=== PATIENT | female | born 1950 | race Caucasian/White ===

== ENCOUNTER 2020-12-12 21:26 | Emergency (ER) | payer MEDICARE, BC ==
[2020-12-12 21:37] VITALS: BP 141/88; PULSE 72
--- NOTE | 2020-12-12 21:45 | EDM.PDOC ---
ED HPI GENERAL MEDICAL PROBLEM - General Chief Complaint: Upper Extremity Injury/Pain Stated Complaint: RIGHT WRIST INJURY Time Seen by Provider: 12/12/20 21:30 Source of Information: Reports: Patient, RN Notes Reviewed History Limitations: Reports: No Limitations - History of Present Illness INITIAL COMMENTS - FREE TEXT/NARRATIVE: Patient is a 70-year-old female presenting to the emergency department with complaints of right wrist pain and swelling. She states earlier today, she fell forward and braced her fall with her wrist. Initially she did not have much pain, however as the evening goes on the pain and swelling has been worsening. She has been icing intermittently. Denies any previous injuries or fractures to this wrist. Right Wrist Pain Score (Numeric/FACES): 8 - Related Data Allergies Allergy/AdvReac Type Severity Reaction Status Date / Time ciprofloxacin Allergy Rash Verified 12/12/20 21:37 doxycycline Allergy Hives Verified 12/12/20 21:37 Home Meds: Home Meds . [No Known Home Meds] 01/16/15 [History] Past Medical History - Infectious Disease History Infectious Disease History: Reports: None Social & Family History - Tobacco Use Tobacco Use Status *Q: Never Tobacco User Second Hand Smoke Exposure: No - Caffeine Use Caffeine Use: Reports: Coffee - Recreational Drug Use Recreational Drug Use: No Review of Systems - Review of Systems Review Of Systems: Comprehensive ROS is negative, except as noted in HPI. ED EXAM, GENERAL - Physical Exam Exam: See Below Exam Limited By: No Limitations General Appearance: Alert, WD/WN, No Apparent Distress Respiratory/Chest: No Respiratory Distress, Lungs Clear, Normal Breath Sounds, No Accessory Muscle Use, Chest Non-Tender Cardiovascular: Normal Peripheral Pulses, Regular Rate, Rhythm, No Edema, No Gallop, No JVD, No Murmur, No Rub Extremities: Other (Tenderness to palpation to the ulnar aspect of the right wrist. Mild amount of swelling. No obvious deformity. CMS intact distal to the injury.) Neurological: Alert, Oriented, CN II-XII Intact, Normal Cognition, Normal Gait, Normal Reflexes, No Motor/Sensory Deficits Psychiatric: Normal Affect, Normal Mood Skin Exam: Warm, Dry, Intact, Normal Color, No Rash Course - Vital Signs Last Recorded V/S: Last Vital Signs Temp 97.5 F 12/12/20 21:34 Pulse 72 12/12/20 21:34 Resp 18 12/12/20 21:34 BP 141/88 H 12/12/20 21:34 Pulse Ox 95 12/12/20 21:34 - Orders/Labs/Meds Orders: Active Orders 24 hr Category Date Time Status Wrist Comp Min 3V Rt [CR] Stat Exams 12/12/20 21:38 Taken DME for Discharge [COMM] Routine Oth 12/12/20 21:57 Ordered - Re-Assessments/Exams Free Text/Narrative Re-Assessment/Exam: Patient is a 70-year-old female presenting to the emergency department with co mplaints of right wrist pain. She states she fell earlier in the day and outstretched her hand to catch herself. Initially she did not have too much pain to her wrist but throughout the evening and has been getting progressively more painful and swollen. On exam, she does have some mild swelling to the ulnar aspect of her wrist. This area is tender to palpation. Radial aspect of her wrist is not tender. There is no obvious deformity. I have ordered an x- ray of the right wrist. 12/12/20 22:02 X-ray of the wrist reviewed by myself and Dr. Palm. There is no visible fractures. Patient will be provided with a Velcro wrist splint to wear as needed. Recommend ice and elevation. If she still has significant discomfort after 1 week, recommend follow-up with orthopedist, Dr. Kent. Departure - Departure Time of Disposition: 22:04 Disposition: Home, Self-Care 01 Condition: Good Clinical Impression: Sprain of wrist, right Qualifiers: Encounter type: initial encounter Qualified Code(s): S63.501A - Unspecified sprain of right wrist, initial encounter - Discharge Information *PRESCRIPTION DRUG MONITORING PROGRAM REVIEWED*: No *COPY OF PRESCRIPTION DRUG MONITORING REPORT IN PATIENT CARLA: No Instructions: Wrist Sprain, Adult Referrals: Madhav Kent MD [Physician] - Forms: ED Department Discharge Additional Instructions: You were seen in the emergency department for pain and swelling to your right wrist after sustaining a fall today. Xrays were completed of the wrist and do not show any obvious fractures. You have been provided with a velco wrist splint. Where this until the pain and swelling resolves. Recommend that you ice and elevate the extremity when at rest. Use over the counter tylenol and ibuprofen as needed for discomfort. If you are still having pain after one week, recommend follow-up with orthopedist, Dr. Kent. The number to schedule with him is listed below. Return to ER for any new or worsening symptoms of concern. Sepsis Event Note (ED) - Evaluation Sepsis Screening Result: No Definite Risk - Focused Exam Vital Signs: Vital Signs Temp Pulse Resp BP Pulse Ox 12/12/20 21:34 97.5 F 72 18 141/88 H 95 - My Orders Last 24 Hours: My Active Orders 12/12/20 21:38 Wrist Comp Min 3V Rt [CR] Stat 12/12/20 21:57 DME for Discharge [COMM] Routine - Assessment/Plan Last 24 Hours: My Active Orders 12/12/20 21:38 Wrist Comp Min 3V Rt [CR] Stat 12/12/20 21:57 DME for Discharge [COMM] Routine
[2020-12-12] MEDS ORDERED: Ibuprofen 600 MG Tab PO ONE (22:12)
--- NOTE | 2020-12-13 08:28 | CR ---
Right wrist: 4 views of the right wrist were obtained. Comparison: No prior wrist study is available. Severe joint space narrowing is noted within the CMC joint of the thumb. Small bony density is seen off the CMC joint of the thumb compatible with degenerative change. Severe joint space narrowing is noted off the distal navicular bone. Joint space narrowing is partially seen within the fifth MCP joint. Osteopenia is noted. No acute fracture, dislocation or other bony abnormality is appreciated. Impression: 1. Osteopenia and degenerative change. 2. Nothing acute is appreciated on right wrist exam. Diagnostic code #2
== END 2020-12-12 22:25 | disposition home or self-care (01) ==
LOC: JD.ED 21:26
DX: S63.501A Unspecified sprain of right wrist, initial encounter (principal); Z88.8 Allergy status to other drugs, medicaments and biological substances; W19.XXXA Unspecified fall, initial encounter
CPT/HCPCS: 73110; 99283; A9270; 99282

== ENCOUNTER 2021-10-14 11:00 | Emergency (ER) | payer MEDICARE, BC ==
[2021-10-14 11:19] VITALS: BP 153/86; PULSE 64
== END 2021-10-14 12:57 | disposition home or self-care (01) ==
LOC: JD.ED 11:00
DX: M25.561 Pain in right knee (principal); Z88.1 Allergy status to other antibiotic agents
CPT/HCPCS: 93971-26-RT; 93971-RT; 99283-25; 99284

== ENCOUNTER 2022-01-04 17:56 | Emergency (ER) | payer MEDICARE, BC ==
[2022-01-04 19:33] VITALS: BP 152/81; PULSE 75
== END 2022-01-04 22:58 | disposition home or self-care (01) ==
LOC: JD.ED 17:56
DX: M25.562 Pain in left knee (principal); Z88.1 Allergy status to other antibiotic agents
CPT/HCPCS: 93971-26-LT; 93971-LT; 99283; 99283-25

== ENCOUNTER 2023-09-09 12:46 | Emergency (ER) | payer MEDICARE, BC ==
[2023-09-09] MEDS ORDERED: Diltiazem 25 MG/5 ML SDV IVPUSH ONE (13:27)
[2023-09-09] MEDS ORDERED: Diltiazem 125 MG in Sodium Chloride 0.9% 100 ML IV SCH (13:30)
[2023-09-09 13:45] LABS: BASOPHILS PERCENT AUTO 0.6 % (0.0-1.0); HEMOGLOBIN 16.4 gm/dl (12.0-16.0); IMMATURE GRAN ABSOLUTE AUTO 0.01 K/mm3 (0.00-0.05); IMMATURE GRAN PERCENT AUTO 0.2 % (0.0-0.4); LYMPHOCYTES ABSOLUTE AUTO 1.6 K/mm3 (1.0-4.8); LYMPHOCYTES PERCENT AUTO 30.2 % (24.0-44.0); MEAN CORPUSCULAR HEMOGLOBIN 29.5 pg (28.0-32.0); MEAN CORPUSCULAR HGB CONC 33.5 g/dl (32.0-36.0); MEAN CORPUSCULAR VOLUME 88.3 fl (83.0-99.0); MEAN PLATELET VOLUME 10.5 fl (9.4-12.3); MONOCYTES ABSOLUTE AUTO 0.8 K/mm3 (0.0-0.8); MONOCYTES PERCENT AUTO 14.6 % (0.0-8.0); NEUTROPHILS ABSOLUTE AUTO 2.8 K/mm3 (1.8-7.7); NEUTROPHILS PERCENT AUTO 54.4 % (41.0-71.0); PLATELET COUNT,PLT 191 K/mm3 (150-400); RED BLOOD CELL COUNT 5.55 M/mm3 (4.10-5.30); WHITE BLOOD CELL COUNT,WBC 5.13 K/mm3 (3.9-11.3)
[2023-09-09 13:52] LABS: INR 0.95; PROTHROMBIN TIME 10.2 SECONDS (9.7-12.0)
[2023-09-09 13:53] LABS: PTT,PARTIAL THROMBOPLSTIN TIME 29.1 SECONDS (21.7-31.4)
[2023-09-09 14:02] LABS: A/G RATIO 0.9 (1-2); ALBUMIN 3.7 g/dl (3.4-5.0); ANION GAP 16.4 (5-15); BILIRUBIN TOTAL 0.5 mg/dL (0.2-1.0); BUN/CREATININE RATIO 16.9 (14-18); C-REACTIVE PROTEIN 0.5 mg/dL (<1.0); CALCIUM 9.1 mg/dL (8.5-10.1); CREATININE 1.3 mg/dL (0.55-1.02); EST CRCL DRUG DOSING (CG) 35.91 mL/min; MAGNESIUM 1.9 mg/dL (1.8-2.4); POTASSIUM,K 4.4 mEq/L (3.5-5.1); PROTEIN TOTAL,TP 7.8 g/dl (6.4-8.2)
[2023-09-09] MEDS ORDERED: Levothyroxine 75 MCG Tab PO ONE (15:11)
[2023-09-09] MEDS ORDERED: Aspirin 81 MG Tab.Chew PO ONE (17:02)
[2023-09-09] MEDS ORDERED: Heparin Sodium 5,000 Units/ML Vial IVPUSH ONE ×2 (17:11→17:12)
[2023-09-09] MEDS ORDERED: Heparin Sodium/D5W 25,000 UNITS/500 ML BAG IV SCH (17:15)
[2023-09-09 18:04] LABS: APPEARANCE,URINE CLEAR (Clear); BILIRUBIN,URINE NEGATIVE (Negative); COLOR,URINE YELLOW (Yellow); GLUCOSE,URINE NEGATIVE (Negative); KETONES,URINE TRACE (Negative); LEUKOCYTE ESTERASE,URINE 1+ (Negative); NITRITE,URINE NEGATIVE (Negative); OCCULT BLOOD,URINE 1+ (Negative); PROTEIN,URINE NEGATIVE (Negative); UROBILINOGEN,URINE 0.2 (0.2-1.0)
[2023-09-09 18:14] LABS: BACTERIA,URINE FEW /hpf (FEW)
[2023-09-09 18:15] LABS: MUCUS,URINE FEW /hpf (FEW)
== END 2023-09-09 18:00 ==
LOC: MERGE 12:46 → JD.ED 12:46
DX: I48.91 Unspecified atrial fibrillation (principal); R77.8 Other specified abnormalities of plasma proteins; E03.9 Hypothyroidism, unspecified; Z88.8 Allergy status to other drugs, medicaments and biological substances
CPT/HCPCS: 36415; 71045; 80053; 81001; 83615; 83735; 83880; 84443; 84484; 85025; 85379; 85610; 85730; 86140; 93005; 96365; 96366; 96367; 99285; A9270; J1644; J3490; 93010

== ENCOUNTER 2025-08-06 19:39 | Emergency (ER) | payer MEDICARE, BC ==
[2025-08-06] MEDS: Acetaminophen/HYDROcodone 325-5 MG Tab PO ONE (20:11)
== END 2025-08-06 21:50 | disposition home or self-care (01) ==
LOC: JD.ED 19:39
DX: S93.421A Sprain of deltoid ligament of right ankle, initial encounter (principal); Z88.1 Allergy status to other antibiotic agents; Z88.8 Allergy status to other drugs, medicaments and biological substances; W20.8XXA Other cause of strike by thrown, projected or falling object, initial encounter
CPT/HCPCS: 73600; 99283; A9270; 99284